=== PATIENT | female | born 1945 | race Caucasian/White ===

== ENCOUNTER → 2016-07-28 | Outpatient (CLI) | payer OTHER ==
[~2016-07-28] MED LIST: AMITRIPTYLINE H10 MG PO; APIDRA100 UNIT/1 SC; ASPIRIN325 MG PO; ATORVASTATIN CA80 MG PO; BUPROPION XL150 MG PO; CILOSTAZOL100 MG PO; CYMBALTA60 MG PO; DOCUSATE SODIU100 MG PO; ELIQUIS5 MG PO; FUROSEMIDE40 MG PO; HUMULIN R500 UNITS/ SC; KLOR-CON 1010 ME1 PO; LIDOCAINE700 MG TD; METOPROLOL TART50 MG PO; Remove Lidoderm Patc TD; SYNTHROID150 MCG PO; TRAMADOL HCL50 MG PO; VITAMIN D2000 UNI1 PO
== END | disposition home or self-care (01) ==
LOC: NUC 08:47
DX: M41.35 Thoracogenic scoliosis, thoracolumbar region (principal); M54.6 Pain in thoracic spine; R07.81 Pleurodynia
CPT/HCPCS: 78315; A9503

== ENCOUNTER 2016-11-06 00:36 | Inpatient (IN) | payer OTHER ==
[~2016-11-06] VITALS: Ht 152.4 cm; Wt 96.9 kg
[2016-11-06 03:38] LABS: MCH 28.6 PG (29.0-34.0); MCHC 31.7 G/DL (30.0-36.0); MCV 90.4 FL (83-99); MEAN PLAT.VOLUME 11.7 uM^3 (9.5-12.4); PLATELET COUNT 259 K/uL (156-360); RBC DIS.WIDTH-CV 14.8 % (11.8-14.6); RBC DIS.WIDTH-SD 49.5 % (39-53); RED BLOOD COUNT 3.32 M/uL (3.80-5.20); WHITE BLOOD COUNT 10.7 K/uL (4.1-10.2)
[2016-11-06 03:48] LABS: CHLORIDE 104 mEq/L (99-109); POTASSIUM 4.4 mEq/L (3.7-5.4); SODIUM 135 mEq/L (136-147)
[2016-11-06 03:50] LABS: GLUCOSE 281 mg/dL (70-99)
[2016-11-06 03:52] LABS: ANION GAP 9 MEQ/L (2-14)
[2016-11-06 03:54] LABS: GFR ESTIMATE (CALCULATED) 25 mL/min/
[2016-11-06 03:55] LABS: UREA NITROGEN (BUN) 46 mg/dL (9-23)
[2016-11-06 08:20] LABS: POINT-OF-CARE METER ID UU14100415
[2016-11-06] MEDS ORDERED: SYNTHROID175 MCG PO (09:21)
[2016-11-06] MEDS ORDERED: BUPROPION XL300 MG PO (09:22)
[2016-11-06] MEDS ORDERED: CYMBALTA30 MG PO (09:23)
[2016-11-06] MEDS ORDERED: ASPIRIN EC325 MG PO (09:23)
[2016-11-06] MEDS ORDERED: HUMULIN R500 UNITS/ SC ×3 (09:25→09:27)
[2016-11-06] MEDS ORDERED: APIDRA100 UNIT/1 SC ×2 (09:28→09:29)
[2016-11-06] MEDS ORDERED: VITAMIN B-12250 MCG PO (09:30)
[2016-11-06] MEDS ORDERED: IRON325 M1 PO (09:30)
[2016-11-06] MEDS ORDERED: LISINOPRIL10 MG PO (09:31)
[2016-11-06] MEDS ORDERED: ELIQUIS2.5 MG PO (09:41)
[2016-11-06 12:09] LABS: POINT-OF-CARE METER ID UU14100415
[2016-11-06] MEDS ORDERED: ELIQUIS5 MG PO (13:07)
[2016-11-06 15:55] VITALS: BP 132/63
[2016-11-06 16:00] VITALS: BP 132/63
[2016-11-06 19:39] VITALS: BP 129/59
[2016-11-07 00:55] VITALS: BP 128/59
[2016-11-07 05:58] LABS: POINT-OF-CARE METER ID UU13113725
[2016-11-07 06:35] LABS: HEMATOCRIT 30.7 % (36.0-46.0); MCH 29.4 PG (29.0-34.0); MCHC 31.6 G/DL (30.0-36.0); MEAN PLAT.VOLUME 11.5 uM^3 (9.5-12.4); PLATELET COUNT 252 K/uL (156-360); RBC DIS.WIDTH-SD 51.5 % (39-53); WHITE BLOOD COUNT 10.1 K/uL (4.1-10.2)
[2016-11-07 06:56] LABS: ALKALINE PHOSPHATASE 115 IU/L (3-129); ANION GAP 8 MEQ/L (2-14); CHLORIDE 101 MEQ/L (99-109); GFR ESTIMATE (CALCULATED) 25 mL/min/; GLUCOSE 352 mg/dL (70-99); SAMPLE HEMOLYSIS CHECK 0; SAMPLE ICTERIC CHECK 0; SAMPLE LIPEMIA CHECK 0; SODIUM 137 MEQ/L (136-147); TOTAL BILIRUBIN 0.2 MG/DL (0.0-1.0); UREA NITROGEN (BUN) 54 mg/dL (9-23)
[2016-11-07 07:13] VITALS: BP 119/56
[2016-11-07] MEDS ORDERED: ACETAMINOPHEN-1 EAC1 PO (07:41)
[2016-11-07] MEDS ORDERED: PEPCID20 MG PO (10:39)
[2016-11-07 10:55] VITALS: BP 144/63
[2016-11-09 12:53] LABS: POINT-OF-CARE METER ID UU13113725
== END 2016-11-07 13:11 | disposition home or self-care (01) | DRG 292 ==
LOC: EME 00:36 → EXP 00:36 → EDOF 05:48 → 5EAST 15:46
PROVIDERS: Emergency Medicine; Internal Medicine
DX: I50.33 Acute on chronic diastolic (congestive) heart failure (principal); M47.816 Spondylosis without myelopathy or radiculopathy, lumbar region; M54.40 Lumbago with sciatica, unspecified side; M41.9 Scoliosis, unspecified; M19.90 Unspecified osteoarthritis, unspecified site; Z86.718 Personal history of other venous thrombosis and embolism; Z90.49 Acquired absence of other specified parts of digestive tract; I13.0 Hypertensive heart and chronic kidney disease with heart failure and stage 1 through stage 4 chronic kidney disease, or unspecified chronic kidney disease; N18.3 Chronic kidney disease, stage 3 (moderate); I73.9 Peripheral vascular disease, unspecified; Z95.1 Presence of aortocoronary bypass graft; Z96.653 Presence of artificial knee joint, bilateral; Z68.41 Body mass index [BMI] 40.0-44.9, adult; E66.01 Morbid (severe) obesity due to excess calories; E11.65 Type 2 diabetes mellitus with hyperglycemia; E11.40 Type 2 diabetes mellitus with diabetic neuropathy, unspecified; G89.29 Other chronic pain; N17.9 Acute kidney failure, unspecified; I25.10 Atherosclerotic heart disease of native coronary artery without angina pectoris; E11.22 Type 2 diabetes mellitus with diabetic chronic kidney disease; E11.21 Type 2 diabetes mellitus with diabetic nephropathy; E78.5 Hyperlipidemia, unspecified; E03.9 Hypothyroidism, unspecified; Z79.4 Long term (current) use of insulin; Z79.01 Long term (current) use of anticoagulants; E86.0 Dehydration; Z72.0 Tobacco use; Z66 Do not resuscitate; Z82.49 Family history of ischemic heart disease and other diseases of the circulatory system
CPT/HCPCS: 71020; 72100; 73502; 76770; 80048; 80053; 82948; 83880; 85027; 99281; 99285; J1815; J1940; J2270

== ENCOUNTER 2017-02-15 20:46 | Emergency (ER) | payer OTHER ==
[~2017-02-15] VITALS: Ht 152.4 cm; Wt 89.9 kg
[~2017-02-15 20:46] MED LIST changes: +ACETAMINOPHEN-1 EAC1 PO; +ASPIRIN EC325 MG PO; +BUPROPION XL300 MG PO; +CYMBALTA30 MG PO; +ELIQUIS2.5 MG PO; +IRON325 M1 PO; +LISINOPRIL10 MG PO; +PEPCID20 MG PO; +SYNTHROID175 MCG PO; +VITAMIN B-12250 MCG PO
[2017-02-15 22:49] VITALS: BP 102/52
== END 2017-02-15 22:55 | disposition home or self-care (01) ==
LOC: EME 20:46
DX: S80.212A Abrasion, left knee, initial encounter (principal); S40.022A Contusion of left upper arm, initial encounter; S00.83XA Contusion of other part of head, initial encounter; M54.2 Cervicalgia; M79.89 Other specified soft tissue disorders; W01.0XXA Fall on same level from slipping, tripping and stumbling without subsequent striking against object, initial encounter; I12.9 Hypertensive chronic kidney disease with stage 1 through stage 4 chronic kidney disease, or unspecified chronic kidney disease; E11.22 Type 2 diabetes mellitus with diabetic chronic kidney disease; N18.9 Chronic kidney disease, unspecified; Z79.4 Long term (current) use of insulin; Z79.01 Long term (current) use of anticoagulants; Z79.82 Long term (current) use of aspirin; Z95.1 Presence of aortocoronary bypass graft; Z96.652 Presence of left artificial knee joint; Z87.891 Personal history of nicotine dependence
CPT/HCPCS: 70450; 70486; 73090; 73110; 73564; 80053; 81003; 85027; 99281; 99284

== ENCOUNTER 2017-10-28 16:44 | Emergency (ER) | payer OTHER ==
[~2017-10-28] VITALS: Ht 152.4 cm; Wt 101.3 kg
[2017-10-28 17:31] LABS: BASOPHIL (%) 0.3 % (0-1); EOSINOPHIL (%) 0.7 % (0-5); HEMATOCRIT 32.9 % (36.0-46.0); HEMOGLOBIN 9.9 G/DL (11.9-15.5); IMMATURE GRANULOCYTE (%) 0.5 % (0.0-0.7); LYMPHOCYTE (%) 12.3 % (15-42); LYMPHOCYTE COUNT 0.8 K/uL (1.0-2.8); MCH 26.3 PG (29.0-34.0); MCHC 30.1 G/DL (30.0-36.0); MCV 87.5 FL (83-99); MONOCYTE (%) 15.2 % (3-12); MONOCYTE COUNT 0.9 K/uL (0-0.8); NEUTROPHIL COUNT 4.3 K/uL (1.8-6.4); PLATELET COUNT 252 K/uL (156-360); RBC DIS.WIDTH-SD 63.4 % (39-53); RED BLOOD COUNT 3.76 M/uL (3.80-5.20); WHITE BLOOD COUNT 6.1 K/uL (4.1-10.2)
[2017-10-28 17:42] LABS: ALBUMIN 3.3 g/dL (3.2-4.8); CHLORIDE 106 mEq/L (99-109); POTASSIUM 5.3 mEq/L (3.7-5.4)
[2017-10-28 17:43] LABS: SODIUM 138 mEq/L (136-147)
[2017-10-28 17:45] LABS: GLUCOSE 317 mg/dL (70-99); TOTAL PROTEIN 6.4 g/dL (6.4-8.3)
[2017-10-28 17:47] LABS: TOTAL BILIRUBIN 0.5 mg/dL (0.0-1.0)
[2017-10-28 17:48] LABS: ALKALINE PHOSPHATASE 158 IU/L (3-129); CREATININE 1.9 mg/dL (0.6-1.3); GFR ESTIMATE (CALCULATED) 28 mL/min/
[2017-10-28 17:50] LABS: AST (GOT) 14 IU/L (2-34); UREA NITROGEN (BUN) 45 mg/dL (9-23)
[2017-10-28 17:51] LABS: ALT (GPT) 16 IU/L (3-49)
[2017-10-28 17:52] LABS: TROP-I INTERPRETATION NEGATIVE; TROPONIN-I 0.02 ng/mL (0.0-0.30)
[2017-10-28] MEDS ORDERED: ULTRAM50 MG PO (20:38)
[2017-10-28 21:16] VITALS: BP 129/58
== END 2017-10-28 20:56 | disposition home or self-care (01) ==
LOC: EME 16:44
PROVIDERS: Emergency Medicine
DX: S22.059A Unspecified fracture of T5-T6 vertebra, initial encounter for closed fracture (principal); S22.049A Unspecified fracture of fourth thoracic vertebra, initial encounter for closed fracture; R07.89 Other chest pain; W18.30XA Fall on same level, unspecified, initial encounter; M43.24 Fusion of spine, thoracic region; M25.78 Osteophyte, vertebrae; R91.1 Solitary pulmonary nodule; I70.0 Atherosclerosis of aorta; I51.7 Cardiomegaly; I12.9 Hypertensive chronic kidney disease with stage 1 through stage 4 chronic kidney disease, or unspecified chronic kidney disease; E11.22 Type 2 diabetes mellitus with diabetic chronic kidney disease; N18.9 Chronic kidney disease, unspecified; Z95.1 Presence of aortocoronary bypass graft; Z79.01 Long term (current) use of anticoagulants; Z79.82 Long term (current) use of aspirin; Z79.4 Long term (current) use of insulin; Z87.891 Personal history of nicotine dependence
CPT/HCPCS: 70450; 71250; 80053; 84484; 85025; 93005; 99281; 99284